=== PATIENT | female | born 1950 | race Caucasian/White ===

== ENCOUNTER 2023-08-16 11:28 | Inpatient (IN) | payer MEDICARE, OTHER ==
[~2023-08-16] VITALS: Ht 157.5 cm; Wt 77.1 kg
[2023-08-16 17:12] VITALS: BP 163/77; TEMP 98.3; O2SAT 99
[2023-08-16] MEDS ORDERED: ACET-2154 PO (18:21)
[2023-08-16] MEDS ORDERED: ASPI-1420 PO (18:22)
[2023-08-16] MEDS ORDERED: ATOR40TA PO (18:23)
[2023-08-16] MEDS ORDERED: BLOO-668 IN (18:27)
[2023-08-16] MEDS ORDERED: PANT40TA49 PO (18:29)
[2023-08-16] MEDS ORDERED: RIVA20TA PO (18:31)
[2023-08-16] MEDS ORDERED: ZINC113C9 TP (18:36)
[2023-08-16] MEDS ORDERED: REMEDY ESSENTIAL ZINC PASTE 113 GM TOP PRN (18:45)
[2023-08-16 22:01] VITALS: BP 150/87; TEMP 97; O2SAT 100
[2023-08-17 05:10] VITALS: BP 117/72; TEMP 98.6; O2SAT 98
[2023-08-17 12:32] VITALS: BP 160/83; TEMP 98.6; O2SAT 98
[2023-08-17] MEDS ORDERED: ACETAMINOPHEN 325 MG TABLET PO PRN (16:15)
[2023-08-17] MEDS: ASPIRIN EC 81 MG TABLET.DR PO SCH (16:32)
[2023-08-17] MEDS: RIVAROXABAN 10 MG TABLET PO SCH (16:34)
[2023-08-17 16:36] VITALS: BP 118/55; TEMP 98.4; O2SAT 97
[2023-08-17] MEDS: BLOOD SUGAR DIAGNOSTIC 1 EACH STRIP VI SCH (16:36)
[2023-08-17] MEDS: ATORVASTATIN 40 MG TABLET PO SCH ×2 (17:46→21:06)
[2023-08-17 20:00] VITALS: BP 118/64; TEMP 97.9; O2SAT 98
[2023-08-18 06:00] VITALS: BP 145/63; TEMP 98.4; O2SAT 96
[2023-08-18] MEDS: PANTOPRAZOLE SODIUM 40 MG TABLET.DR PO SCH (06:13)
[2023-08-18 06:37] LABS: BASOPHILS # (AUTO) 0.1 K/UL (0.0-0.2); BASOPHILS % (AUTO) 1.3 % (0.0-2.0); EOSINOPHILS # (AUTO) 0.2 K/uL (0.0-0.7); EOSINOPHILS % (AUTO) 3.3 % (0.0-7.0); HEMATOCRIT 36.3 % (31.2-41.9); HEMOGLOBIN 12.3 g/dL (10.9-14.3); LYMPHOCYTES # (AUTO) 1.5 K/uL (0.8-4.8); LYMPHOCYTES % (AUTO) 33.7 % (20.5-51.5); MEAN CORPUSCULAR HEMOGLOBIN 31.9 uug (24.7-32.8); MEAN CORPUSCULAR HGB CONC 34 g/dL (32.3-35.6); MEAN CORPUSCULAR VOLUME 94.2 fL (75.5-95.3); MONOCYTES # (AUTO) 0.5 K/uL (0.1-1.30); MONOCYTES % (AUTO) 10.3 % (0.0-11.0); NEUTROPHILS # (AUTO) 2.3 K/uL (1.8-8.9); NEUTROPHILS % (AUTO) 51.4 % (38.5-71.5); PLATELET COUNT (AUTO) 332 K/uL (179-408); RED BLOOD CELL COUNT(AUTO) 3.86 MIL/uL (3.63-4.92); RED CELL DISTRIBUTION WIDTH 13.7 % (12.3-17.7); WHITE BLOOD COUNT (AUTO) 4.5 K/uL (3.8-11.8)
[2023-08-18 07:00] LABS: DIFFERENTIAL COMMENT 1
[2023-08-18 07:22] LABS: ALANINE AMINOTRANSFERASE 15 U/L (14-59); ALBUMIN 2.8 g/dL (3.4-5.0); ALKALINE PHOSPHATASE 80 U/L (50-136); ASPARTATE AMINOTRANSFERASE 14 U/L (15-37); BILIRUBIN,TOTAL 0.4 mg/dL (0.2-1.0); CALCIUM 8.9 mg/dL (8.5-10.1); CARBON DIOXIDE 30 mmol/L (21-32); CHLORIDE 106 mmol/L (98-107); CHOLESTEROL 263 mg/dL (<200); CREATININE 0.7 mg/dL (0.6-1.3); GLUCOSE 91 mg/dL (74-106); HDL CHOLESTEROL 55 mg/dL (40-60); MAGNESIUM 2.1 mg/dL (1.8-2.4); NT-PRO BNP 113 pg/mL (0-125); PHOSPHOROUS 3.5 mg/dL (2.5-4.9); POTASSIUM 3.9 mmol/L (3.5-5.1); SODIUM SERUM 141 mmol/L (136-145); TOTAL PROTEIN, SERUM 8.1 g/dL (6.4-8.2); TRIGLYCERIDES 80 MG/DL (30-150); UREA NITROGEN, BLOOD 19 mg/dL (7-18)
[2023-08-18 07:58] LABS: THYROID STIMULATING HORMONE 2.174 mIU/mL (0.358-3.740)
[2023-08-18 08:45] VITALS: BP 138/61; TEMP 98.1; O2SAT 97
[2023-08-18 15:45] VITALS: BP 146/69; TEMP 97.5; O2SAT 99
[2023-08-18 20:00] VITALS: BP 149/78; TEMP 98.1; O2SAT 98
[2023-08-19 06:00] VITALS: BP 157/72; TEMP 97.8; O2SAT 99
[2023-08-19 12:00] VITALS: BP 139/71; TEMP 97.5; O2SAT 99
[2023-08-19] MEDS: diphenhydrAMINE 1% CREAM 28.3 GM TUBE TP PRN (12:57)
[2023-08-19 16:00] VITALS: BP 150/75; TEMP 97.9; O2SAT 100
[2023-08-19 20:00] VITALS: BP 160/81; TEMP 97.9; O2SAT 99
[2023-08-20 04:37] VITALS: BP 158/82; TEMP 98.1; O2SAT 99
[2023-08-20] MEDS ORDERED: CLONIDINE HCL 0.1 MG TABLET PO PRN (10:45)
[2023-08-20 19:10] VITALS: BP 139/75; TEMP 97.8; O2SAT 99
[2023-08-20 20:13] VITALS: BP 126/62; TEMP 98.2; O2SAT 97
[2023-08-20] MEDS: CLOTRIMAZOLE/BETAMET DIPROP CREAM 15 GM TUBE TOP SCH (20:28)
[2023-08-21 04:30] VITALS: BP 168/95; TEMP 98.3; O2SAT 98
[2023-08-21 16:21] VITALS: BP 122/64; TEMP 98.1; O2SAT 99
[2023-08-21 21:03] VITALS: TEMP 97.8
[2023-08-22 04:48] VITALS: TEMP 97.2
[2023-08-22 09:36] VITALS: BP 157/83; TEMP 97.7; O2SAT 100
[2023-08-22 16:00] VITALS: BP 101/58; TEMP 98.1; O2SAT 98
[2023-08-22 21:31] VITALS: BP 153/73; TEMP 98.2; O2SAT 98
[2023-08-23 06:41] VITALS: BP 173/81; TEMP 98.2; O2SAT 99
[2023-08-23 11:38] VITALS: BP 142/65; TEMP 97.7; O2SAT 96
== END 2023-08-23 13:20 | disposition home health service (06) | DRG 57 ==
PROVIDERS: ADMIT Physical Medicine & Rehabilitation Pain Medicine; ATTEND Physical Medicine & Rehabilitation Pain Medicine
DX: I69.334 Monoplegia of upper limb following cerebral infarction affecting left non-dominant side (principal); I69.328 Other speech and language deficits following cerebral infarction; I65.21 Occlusion and stenosis of right carotid artery; R47.81 Slurred speech; I10 Essential (primary) hypertension; E78.5 Hyperlipidemia, unspecified; Z86.718 Personal history of other venous thrombosis and embolism; I73.9 Peripheral vascular disease, unspecified; Z88.2 Allergy status to sulfonamides; I67.2 Cerebral atherosclerosis; M47.812 Spondylosis without myelopathy or radiculopathy, cervical region; I87.8 Other specified disorders of veins; M48.02 Spinal stenosis, cervical region; E66.3 Overweight; Z68.31 Body mass index [BMI] 31.0-31.9, adult; D53.9 Nutritional anemia, unspecified; J32.0 Chronic maxillary sinusitis
CPT/HCPCS: 36415; 83735; 84100; 84443; 84484; 85025; 97535-GO-CO